=== PATIENT | male | born 1945 | race Caucasian/White ===

== ENCOUNTER 2020-07-17 10:01 | Outpatient (CLI) | payer BC ==
--- NOTE | 2020-07-17 10:50 | SLEEP CARE CONSULTATION ---
Information from patient questionnaire entered by Kacey Campbell. I have reviewed and concur with the information entered by Kacey Campbell. This document represents the service I personally performed and the decisions made by me, Taz Nava MD, [facility]. History of Present Illness Service Date and Time: 07/17/2020 1001 Reason for Visit: New patient Chief Complaint: reports: Snoring, Observed pauses in breathing Date of Onset: over 10 years Usual bedtime: 11 pm Time it takes to fall asleep: 20 minutes Snores at night: Yes Observed to quit breathing while asleep: Yes Sleeps alone due to snoring: Yes (sometimes) Number of times waking at night: 2-3 Reasons for waking at night: reports: Bathroom Toss, Turn, or Twitch while sleeping: No Recalls having dreams: Yes Usually gets out of bed at: 7:30 am Feels refreshed in the morning: Yes Morning headache: No Sleepy or fatigued during the day: Yes Ever fallen asleep while driving: No Takes day naps: Yes Dreams during day naps: No Prior sleep studies: Yes Year and Where: 1991 - in [place] Additional HPI information: I had the pleasure of seeing Mr. Fernandez today regarding the possibility of him having a sleep disorder. As you know, he a 74 year old gentleman who complains of loud snore and his has witnessed him to stop breathing while asleep. He actually was diagnosed with the sleep-disordered breathing in 1991. He recalls the AHI to be 72. He had uvulopalatopharyngoplasty and turbinate reduction surgeries. He had significant improvement. There was no follow up sleep study. He did not snore for many years. He had to learn how to swallow again so that fluid does not come out his nose. In the past several years, his snore has returned. He is slightly sleepy during the nap and has to nap despite getting 8 hours of sleep at night. He has coronary artery disease and a heart attack. He has an implanted defibrillator. - Parasomnia Symptoms Ever been unable to move upon waking from sleep: No Ever felt weak in the knees when startled or emotional: No Bothered by creepy, crawly, restless sensations in legs: No Problems with memory or concentration: No Subjective Initial [place] Sleepiness Scale score: 8 (in 2019) Past Medical History Past Medical History: reports: Coronary Heart Disease, Other (heart attack - defib implant) Social History The patient's occupation is a Retired. Patient is and lives in [place]. Have you smoked in the past 12 months: No Cigarettes per day (20/pack): 20 Years of smokin Quit date: 1985 Smoking Pack Years: 35.0 Alcohol use: Yes Alcohol amount and frequency: 1 drink every 3-4 months Caffeine use: No Family History Family history of sleep disordered breathing: No Allergies and Home Medications Drug allergies reviewed: Yes Home medication list reviewed: Yes Review of Systems Respiratory: denies: shortness of breath, wheeze, sputum production, chronic cough, other Gastrointestinal: denies: heartburn, difficulty swallowing, nausea, vomitting, diarrhea, abdominal pain, other Urinary: denies: incontinence, frequency, urgency, impotence, other Neurological: denies: headaches, seizure, head trauma, disorientation, speech dysfunction, gait or balance problems, fainting or unconsciousness, other Psychiatric: denies: Attention Deficit Hyperactivity, anxiety, depression, mood disorder, claustrophobia, other Ear/Nose/Throat: reports: nasal congestion, wisdom teeth removed Endocrine: denies: thyroid disease, history of goiter, sluggishness, too hot or cold, excessive thirst, increased appetite, increased urination, unexplained weakness, other Musculoskeletal: reports: neck pain, back pain Physical Exam Vital signs obtained and entered by: To minimize the risk of COVID-19 exposure, detailed exam was not performed. Height: 6 ft 1 in Weight: 177 lb Body Mass Index: 23.3 BMI Classification: Healthy weight Impression and Plan IMPRESSION: 1. Obstructive Sleep Apnea-Hypopnea Syndrome, as suggested by history of loud and irregular snoring, observed cessation of breath while asleep, frequent awakenings during the night, and daytime hypersomnolence. Pathophysiology of sleep-disordered breathing was discussed. I recommend proceeding to polysomnography to confirm the diagnosis and to assess severity. If he has significant sleep disordered breathing, a manual CPAP titration study will also be performed to find the optimal treatment pressure. I informed the patient of what the sleep studies involve and after some discussion, he would like to first have a home sleep apnea test (HSAT). Plan: 1. Schedule a home sleep apnea test (HSAT). 2. Avoid long distance driving or when feeling sleepy. 3. Avoid alcohol, sedative and muscle relaxant around bedtime. 4. Return in 1 to 2 weeks after the study to discuss results and initiate therapy. Visit Type: In Office Time Spent with Patient (minutes): 20 Provider Statement: I spent 100% of the Face to Face Visit with the patient with greater than 50% spent counseling the patient and coordination of care.
== END 2020-07-17 10:02 | disposition home or self-care (01) ==
LOC: SC 10:01
PROVIDERS: ATTEND Internal Medicine Pulmonary Disease
DX: G47.10 Hypersomnia, unspecified (principal); G47.8 Other sleep disorders; R06.81 Apnea, not elsewhere classified; R06.83 Snoring
CPT/HCPCS: 99203; 99212

== ENCOUNTER 2020-07-26 12:29 | Outpatient (CLI) | payer BC | END 2020-07-26 12:30 | disposition home or self-care (01) | LOC: SC 12:29 | PROVIDERS: ATTEND Internal Medicine Pulmonary Disease | DX: Z53.9 Procedure and treatment not carried out, unspecified reason (principal) | CPT/HCPCS: 95806 ==

== ENCOUNTER 2020-09-11 20:36 | Outpatient (CLI) | payer BC | END 2020-09-11 20:37 | disposition home or self-care (01) | LOC: SC 20:36 | PROVIDERS: ATTEND Internal Medicine Pulmonary Disease | DX: G47.33 Obstructive sleep apnea (adult) (pediatric) (principal); G47.61 Periodic limb movement disorder | CPT/HCPCS: 95810 ==

== ENCOUNTER 2020-09-18 09:35 | Outpatient (CLI) | payer BC ==
--- NOTE | 2020-09-18 10:03 | SLEEP CARE CONSULTATION ---
Information from patient questionnaire entered by Kacey Campbell. I have reviewed and concur with the information entered by Kacey Campbell. This document represents the service I personally performed and the decisions made by me, Taz Nava MD, [facility]. History of Present Illness Service Date and Time: 09/18/2020 0935 Initial [place] Sleepiness Scale score: 8 (in 2019) Current [place]um Sleepiness Scale score: 3 Additional HPI information: HPI: Mr. Fernandez returned for follow up of the sleep study he had on 09/11/2020. The polysomnography showed that the patient had slightly reduced sleep efficiency due to a prolonged awakening in the middle of the night. Except for mild sleep fragmentation, the sleep architecture was normal.. Respiratory monitoring showed moderate obstructive sleep apnea-hypopnea (AHI = 28.3) associated with frequent arousals, oxyhemoglobin desaturation and moderate hypoxia (melani oxygen saturation of 78%). The respiratory events occurred almost exclusively during supine sleep (supine AHI = 31.9; non-supine = 2.96). Snore was moderate to loud in intensity. There was moderate periodic leg movement of sleep not contributing to the sleep fragmentation. Cardiac rhythm was normal sinus rhythm with occasional premature ventricular contractions. No abnormal behavior (parasomnia) observed during the night. The patient was informed of these findings. I explained to him the pathophysiology behind obstructive sleep apnea. We then spent quite a bit of time discussing different treatment options. For mild obstructive sleep apnea, surgery and oral appliance are alternatives to nasal CPAP therapy but in moderate or severe cases, nasal CPAP is the most effective and reliable treatment. Weight loss in an obese individual is strongly recommended. After some discussion, he opted to go with the nasal CPAP therapy. He already had uvulopalatopharyngoplasty in the early . I explained to him how CPAP machine works and what to expect when using the machine. Sleep Study - Results Type of Sleep Study: Polysomnography Prior sleep studies: Yes Year and Where: 1991 - in [place] Allergies and Home Medications Drug allergies reviewed: Yes Home medication list reviewed: Yes Review of Systems Review of systems same as previous: Yes Physical Exam Height: 6 ft 1 in Weight: 177 lb Body Mass Index: 23.3 BMI Classification: Healthy weight Impression and Plan IMPRESSION: 1. Obstructive Sleep Apnea-Hypopnea Syndrome, moderate, associated with moderate hypoxemia and sleep fragmentation. Obviously this is the cause of the patients symptoms of unrefreshed sleep, and excessive daytime sleepiness. As mentioned above, the patient will be started on autoCPAP set at 5 - 15 cmH2O. Depending on his response and compliance he may be brought back for an overnight CPAP titration study. PLAN: 1. Prescription made for an autoCPAP, heated humidifier, and related supplies. 2. Avoid alcohol consumption near bedtime. 3. Avoid sleeping supine if not using CPAP. 4. Return for follow up after one month of using the CPAP. Visit Type: In Office Time Spent with Patient (minutes): 15 Provider Statement: I spent 100% of the Face to Face Visit with the patient with greater than 50% spent counseling the patient and coordination of care.
== END 2020-09-18 09:36 | disposition home or self-care (01) ==
LOC: SC 09:35
PROVIDERS: ATTEND Internal Medicine Pulmonary Disease
DX: G47.33 Obstructive sleep apnea (adult) (pediatric) (principal)
CPT/HCPCS: 99212; 99213

== ENCOUNTER 2020-11-06 14:14 | Outpatient (CLI) | payer BC ==
--- NOTE | 2020-11-06 14:38 | SLEEP CARE CONSULTATION ---
Information from patient questionnaire entered by Damari Gasca. I have reviewed and concur with the information entered by Damari Gasca. This document represents the service I personally performed and the decisions made by me, Taz Nava MD, [facility]. History of Present Illness Service Date and Time: 11/06/2020 1414 Previous diagnosis: Moderate, Obstructive Sleep Apnea-Hypopnea Syndrome AHI: 28.3 Reason for follow up: first compliance (Setup 10/04/20) Equipment type: CPAP Equipment obtained from: [email or web address] Mask style: Nasal pillows Prior sleep studies: Yes Year and Where: 2020 [facility] and 1991 - in [place] Type of Sleep Study: Polysomnography HPI additional information: HPI: Mr. Fernandez was diagnosed to have moderate obstructive sleep apnea-hypopnea syndrome and returns today for follow up of CPAP therapy. The patient purchased the device from [email or web address] and was fitted with a nasal mask. He uses the device nightly and all through the night. The compliance report shows that he uses the device 30 nights out of the past 30 nights, averaging 8.1 hours a night. He complains of no particular problem with the device such as soreness on the face, dry nose, epistaxis, nasal congestion or headache. He thinks that the pressure of 5 - 15 cmH2O is comfortable. On the CPAP therapy he notices improvement in his sleep quality, and that he wakes up feeling fresher in the morning and more awake/alert during the day. His notices no snore at all. [place] Sleepiness Scale score is 3. The average residual AHI is 5; and average time in large leak per day is 14 minutes a night. The 90th percentile pressure is 7.5 cmH2O. CPAP Compliance Data - Data Reviewed with Patient Average duration of nightly device use: 8 h 9 min Compliance rate %: 96.7 Current pressure setting (cmH2O): 5-15 Humidity settin Heated hose settin Average residual AHI: 5.0 Average large leak: 14 min Subjective Patient concerns: reports: mask leak noise Current pressure setting perceived as: too high (?) Initial [place] Sleepiness Scale score: 8 (in 2019) Current [place] Sleepiness Scale score: 3 Allergies and Home Medications Drug allergies reviewed: Yes Home medication list reviewed: Yes Review of Systems Review of systems same as previous: Yes Physical Exam Height: 6 ft 1 in Weight: 177 lb Body Mass Index: 23.3 BMI Classification: Healthy weight Impression and Plan IMPRESSION: 1. Obstructive Sleep Apnea-Hypopnea Syndrome, moderate, with the patient continuing to do well on nasal CPAP therapy. He has excellent compliance and significant clinical benefits. The current pressure appears effective and comfortable. Overall, he is very satisfied with treatment and plans to continue with it long-term. No adjustment is necessary today. PLAN: 1. Continue with autoCPAP set at 5 - 15 cm H2O. 2. Try nasal pillows 3. Return in one year for follow up or earlier if there is any problem with the treatment. Visit Type: In Office Time Spent with Patient (minutes): 15 Provider Statement: I spent 100% of the Face to Face Visit with the patient with greater than 50% spent counseling the patient and coordination of care.
== END 2020-11-06 14:15 | disposition home or self-care (01) ==
LOC: SC 14:14
PROVIDERS: ATTEND Internal Medicine Pulmonary Disease
DX: G47.33 Obstructive sleep apnea (adult) (pediatric) (principal)
CPT/HCPCS: 99212

== ENCOUNTER 2021-04-30 15:21 | Outpatient (CLI) | payer BC, MEDICARE ==
--- NOTE | 2021-04-30 16:13 | SLEEP CARE CONSULTATION ---
Information from patient questionnaire entered by Damari Gasca. I have reviewed and concur with the information entered by Damari Gasca. This document represents the service I personally performed and the decisions made by me, Taz Nava MD, [facility]. History of Present Illness Service Date and Time: 04/30/2021 1521 Previous diagnosis: Moderate, Obstructive Sleep Apnea-Hypopnea Syndrome AHI: 28.3 Reason for follow up: six month (followup - recall questions) Equipment type: CPAP Equipment obtained from: [employer] Mask style: Nasal pillows Prior sleep studies: Yes Year and Where: 2020 [facility] and 1991 - in [place] Type of Sleep Study: Polysomnography HPI additional information: Mr. Fernandez was diagnosed to have moderate obstructive sleep apnea-hypopnea syndrome and was called today for follow up of CPAP therapy. He made the appointment because he wants to talk about the [employer] recall. The patient purchased the device from [employer] wears nasal pillows. He continues to use the device nightly and all through the night. The compliance report shows that he uses the device 178 nights out of the past 180 nights, averaging 7.4 hours a night. He complains of no particular problem with the device such as soreness on the face, dry nose, epistaxis, nasal congestion or headache. He thinks that the pressure of 5 - 15 cmH2O is comfortable. On the CPAP therapy he notices some improvement in his sleep quality, but he uses it mainly to eliminate his snore. The average residual AHI is 6.2; and average time in large leak per day is 48 minutes a night. The 90th percentile pressure is 7.1 cmH2O. CPAP Compliance Data - Data Reviewed with Patient Average duration of nightly device use: 7 h 23 min Compliance rate %: 95.6 Current pressure setting (cmH2O): 5-15 Humidity settin Heated hose settin Average residual AHI: 6.2 Average large leak: 48 min 44 sec Subjective Initial [place] Sleepiness Scale score: 8 (in 2019) Allergies and Home Medications Drug allergies reviewed: Yes Home medication list reviewed: Yes Review of Systems Review of systems same as previous: Yes Physical Exam Height: 6 ft 1 in Impression and Plan IMPRESSION: 1. Obstructive Sleep Apnea-Hypopnea Syndrome, moderate, with the patient continuing to do well on nasal CPAP therapy. He has excellent compliance and significant clinical benefits. The current pressure appears effective and comfortable. Because he has minimal symptoms when not using his CPAP, I recommend he refrain from using it until he gets the replacement device. The patient registered his device back in January. Therefore, he should be getting the new Respironics DreamStation 2 very soon. PLAN: 1. Refrain from using his CPAP. 2. Make an appointment for a follow up after he receives his replacement machine. I may adjust the pressure up at that time. Follow up with Sleep Care in: 3 months Visit Type: Telehealth Video Video Type: VSee Patient Location: Home Location of Provider: Office Patient agrees and consents to this telehealth visit type: Yes Patient agrees to have their insurance billed: Yes Time Spent with Patient (minutes): 15 Provider Statement: I spent 100% of the Telehealth Video Call with the patient with greater than 50% spent counseling the patient and coordination of care.
== END 2021-04-30 15:22 | disposition home or self-care (01) ==
LOC: SC 15:21
PROVIDERS: ATTEND Internal Medicine Pulmonary Disease
DX: G47.33 Obstructive sleep apnea (adult) (pediatric) (principal)